=== PATIENT | male | born 1955 | race Caucasian/White ===

== ENCOUNTER 2017-05-06 06:07 | Inpatient (IN) | payer BC ==
[~2017-05-06] VITALS: Ht 177.8 cm; Wt 93.7 kg
[2017-05-06 06:31] VITALS: BP 141/76
[2017-05-06 06:34] VITALS: BP 141/76
[2017-05-06 07:00] LABS: PTT 26.5 SEC (25-37)
[2017-05-06 07:01] LABS: BASOPHIL (%) 1.7 % (0-1); BASOPHIL COUNT 0.1 K/uL (0-0.1); EOSINOPHIL (%) 3.2 % (0-5); EOSINOPHIL COUNT 0.2 K/uL (0-0.3); HEMATOCRIT 41.1 % (38.0-50.0); HEMOGLOBIN 13.7 G/DL (12.5-16.6); IMMATURE GRANULOCYTE (%) 0.5 % (0.0-0.7); LYMPHOCYTE (%) 21.1 % (15-42); LYMPHOCYTE COUNT 1.2 K/uL (1.0-2.8); MCHC 33.3 G/DL (30.0-36.0); MCV 89.9 FL (86-99); MONOCYTE (%) 10.2 % (3-12); MONOCYTE COUNT 0.6 K/uL (0-0.8); NEUTROPHIL (%) 63.3 % (45-76); NEUTROPHIL COUNT 3.7 K/uL (1.8-6.4); PLATELET COUNT 185 K/uL (156-360); RBC DIS.WIDTH-CV 12.6 % (11.8-14.6); RBC DIS.WIDTH-SD 41.5 % (39-53); RED BLOOD COUNT 4.57 M/uL (4.00-5.50); WHITE BLOOD COUNT 5.9 K/uL (4.1-10.2)
[2017-05-06 07:12] LABS: CHLORIDE 106 MEQ/L (99-109); CREATININE 0.8 MG/DL (0.6-1.3); GFR ESTIMATE (CALCULATED) > 59 mL/min/ (58.99-99999); GLUCOSE 96 mg/dL (70-99); POTASSIUM 4.4 MEQ/L (3.7-5.4); SODIUM 140 MEQ/L (136-147); UREA NITROGEN (BUN) 20 mg/dL (9-23)
[2017-05-06 08:10] VITALS: BP 122/75
[2017-05-06 18:38] VITALS: BP 132/76
[2017-05-06 19:54] VITALS: BP 123/76
[2017-05-06 23:48] VITALS: BP 106/57
[2017-05-07 03:26] VITALS: BP 112/60
[2017-05-07 08:09] VITALS: BP 120/70
[2017-05-07 12:11] VITALS: BP 142/76
[2017-05-07 16:32] VITALS: BP 149/75
[2017-05-07] MEDS ORDERED: DIAZEPAM5 MG PO (17:01)
[2017-05-07] MEDS ORDERED: TAMSULOSIN HCL0.4 MG PO (17:01)
[2017-05-07] MEDS ORDERED: TIZANIDINE HCL4 MG PO (17:01)
[2017-05-07] MEDS ORDERED: HYDROCODON-ACE1 EAC7 PO (17:01)
== END 2017-05-07 19:19 | disposition home or self-care (01) | DRG 454 ==
LOC: SDC 06:07 → 2EASTP 06:08 → 2SOUTH 06:54 → 2EASTP 06:54 → 3EAST 06:54 → ENRESERV 10:02 → 2SOUTH 10:02 → ENRESERV 10:21 → SDC 14:19 → 3EAST 18:03 → SDC 22:38 → 3EAST 05-07 19:19
PROVIDERS: Neurological Surgery
DX: M47.12 Other spondylosis with myelopathy, cervical region (principal); G95.89 Other specified diseases of spinal cord; M19.90 Unspecified osteoarthritis, unspecified site; R26.9 Unspecified abnormalities of gait and mobility; R53.1 Weakness
CPT/HCPCS: 36415; 72020; 72040; 76000; 80048; 85025; 85610; 85730; 86850; 86900; 86901; 93005; C1713; C1821; J0131; J0690; J1170; J1580; J2250; J2270; J2930; J3010; J3370; J3480